=== PATIENT | female | born 2000 | race Caucasian/White ===

== ENCOUNTER 2022-08-17 12:16 | Outpatient (CLI) | payer OTHER, SELFPAY ==
--- NOTE | ~2022-08-17 | XR_ITS ---
XR hip RT min 2V 08/17/2022 12:43 Indication: Right leg weakness. Procedure: 2 views right hip Comparison: No prior studies for comparison. Findings: No fracture, subluxation or dislocation. There is anatomic alignment. No soft tissue abnorm ality. No foreign bodies. Impression: 1: No significant bone or joint abnormality. Reviewed, dictated and finalized at location A. [employer] Impression: 1: No significant bone or joint abnormality.
== END 2022-08-17 12:17 | disposition home or self-care (01) ==
LOC: CHSIMG 12:22
PROVIDERS: PCP Physician Assistant; Visit Provider Registered Nurse
DX: R29.898 Other symptoms and signs involving the musculoskeletal system (principal)
CPT/HCPCS: 73502